=== PATIENT | male | born 2000 ===

== ENCOUNTER 2023-03-14 08:42 | Outpatient (CLI) | payer OTHER, SELFPAY ==
--- NOTE | ~2023-03-14 | MR_ITS ---
MRI of the right shoulder Technique: Axial proton-density fat-sat images, coronal proton density fat-sat and T2 fat-sat images, and sagittal T1-weighted and T2 fat-sat images were acquired. Clinical History: Supraspinatus weakness Findings: There is no significant AC joint degenerative change. Coracoclavicular, coracoacromial, and coracohumeral ligaments are intact. There is a probable tiny low-grade linear articular surface partial tear of the distal supraspinatus tendon insertion measuring 3 x 3 mm. Infraspinatus tendon is intact, without partial or full-thicknes s tear. Subscapularis tendon is intact. Tendon of the long head of the biceps is intact. No labral tear identified. Inferior glenohumeral ligament is intact. No degenerative change or effusion of the glenohumeral join t. There is minimal fluid distention of the subacromial/subdeltoid bursa. No muscle atrophy or edema. Impression: 3 x 3 mm linear low-grade articular surface partial tear of the distal supraspinatus tendon insertion . Mild subacromial/subdeltoid bursitis. Reviewed, dictated and finalized at [facility]. Impression: 3 x 3 mm linear low-grade articular surface partial tear of the distal supraspi natus tendon insertion. Mild subacromial/subdeltoid bursitis.
== END 2023-03-14 08:43 ==
DX: M75.101 Unspecified rotator cuff tear or rupture of right shoulder, not specified as traumatic (principal); M75.51 Bursitis of right shoulder
CPT/HCPCS: 73221